=== PATIENT | male | born 1995 | race Caucasian/White ===

== ENCOUNTER → 2018-01-03 | Outpatient (CLI) | payer OTHER ==
--- NOTE | 2018-01-03 14:52 | DIAGNOSTIC IMAGING REPORT ---
MRI OF THE LEFT KNEE CLINICAL HISTORY: Left knee pain. COMPARISON STUDY: No priors. TECHNIQUE: MRI of the left knee was performed utilizing proton density, T1, and T2-weighted sequences in the axial, sagittal, coronal planes. IV contrast was not administered for this examination. The examination is degraded by motion artifact. Note that interpretation is suboptimal without plain film correlate. FINDINGS: Menisci: The medial and lateral menisci are intact. Ligaments: The anterior and posterior cruciate ligaments are maintained. The medial and lateral collateral ligaments are intact. There is slightly increased signal between the distal iliotibial band in the femoral condyle. Extensor mechanism: The extensor mechanism is intact. Hoffa's fat pad is normal in appearance. Articular cartilage and bone: There is mild chondromalacia patella seen involving the inferior aspect of the medial facet (axial image #11). There are foci fissuring which approach 50% thickness. The femoral trochlea is slightly shallow. The cartilage of the femoral trochlea is maintained. The articular cartilage in the medial and lateral compartments is well maintained. Normal marrow signal is preserved of the visualized bony structures. Joint effusion: There is trace joint fluid. Soft tissues: The musculature surrounding the knee joint is normal in bulk and signal intensity. IMPRESSION: 1. 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 2. Trace joint fluid. 3. Question mild iliotibial band syndrome. Clinical correlation will be required. 4. There is no evidence of meniscal or ligamentous injury in the left knee. Electronically signed by: Ata Meyer M.D. 01/03/2018 2:50 PM Dictated Date/Time: 01/03/2018 2:40 PM
== END | disposition home or self-care (01) ==
LOC: C.MRI 13:48
PROVIDERS: ATTEND Physician Assistant
DX: M25.562 Pain in left knee (principal)